=== PATIENT | female | born 1970 | race American Indian/Alaskan Native ===

== ENCOUNTER 2017-02-08 19:39 | Emergency (ER) | payer OTHER, MEDICAID ==
[2017-02-08 20:29] VITALS: BP 131/74; PULSE 69; RESP 18; TEMP 98.7; O2SAT 100
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
--- NOTE | 2017-02-09 11:08 | RAD ---
PROCEDURE: Radiographs of the Right Shoulder HISTORY: Injury COMPARISON: No prior. FINDINGS: BONES: Bone alignment and mineralization are normal. No acute fracture. JOINTS: Normal. Glenohumeral and acromioclavicular joints preserved. No osteoarthritis. SOFT TISSUES: Normal. OTHER FINDINGS: None. IMPRESSION: No acute fracture or dislocation.
--- NOTE | 2017-02-09 11:11 | RAD ---
PROCEDURE: Left Knee Radiographs. HISTORY: Pain. COMPARISON: None. FINDINGS: BONES: Bone alignment and mineralization are normal. No acute fracture. JOINTS: Normal. No osteoarthritis. JOINT EFFUSION: None. OTHER FINDINGS: None. IMPRESSION: No acute fracture or dislocation.
== END 2017-02-08 22:35 | disposition home or self-care (01) ==
LOC: H.ER 19:39
DX: S80.02XA Contusion of left knee, initial encounter (principal); V73.6XXA Passenger on bus injured in collision with car, pick-up truck or van in traffic accident, initial encounter
CPT/HCPCS: 73030; 73562; 96372; 99283; J1885